=== PATIENT | female | born 1970 | race Caucasian/White ===

== ENCOUNTER 2021-06-12 15:45 | Outpatient (CLI) | payer OTHER, SELFPAY ==
--- NOTE | 2021-06-12 15:54 | RAD_ITS ---
STUDY: X-RAY - LUMBAR SPINE REASON FOR EXAM: Female, 50 years old. LOW BACK PAIN PAIN TECHNIQUE: XR Spine Lumbar 2 or 3 Views COMPARISON: None FINDINGS: Normal lumbar lordosis. There is no substantial scoliosis. There is a normal alignment of the vertebrae. There is multilevel endplate spondylosis of the lumbar vertebrae. Normal disc space heights. There are valvular calcifications in the heart. There are multiple metallic clips in the right upper quadrant. This is consistent for a cholecystectomy. The soft tissue structures are unremarkable. RAD/Lumbar Spine 2 or 3 Views IMPRESSION: Degenerative changes of the spine, as detailed above. Electronically Signed: James Garcia MD at 16:27 EST , Service support ,
== END 2021-06-12 23:59 | disposition short-term general hospital (02) ==
PROVIDERS: Referring Provider Anesthesiology Pain Medicine; Visit Provider Anesthesiology Pain Medicine
DX: M51.37 Other intervertebral disc degeneration, lumbosacral region (principal)
CPT/HCPCS: 72100